=== PATIENT | female | born 1960 | race Asian ===

== ENCOUNTER 2017-02-22 10:57 | Emergency (ER) | payer MEDICAID ==
[~2017-02-22] VITALS: Ht 160 cm; Wt 65.9 kg
[~2017-02-22 10:57] MED LIST: CHOLESTEROL PO; GLIP5 PO; LOSA25TA21 PO
[2017-02-22 11:06] LABS: GLUCOSE,POINT OF CARE 140 MG/DL (70-110)
[2017-02-22 11:15] VITALS: BP 158/92
[2017-02-22] MEDS ORDERED: IBUPROFEN 600 MG TABLET PO ONE (12:00)
== END 2017-02-22 12:50 | disposition home or self-care (01) ==
LOC: EMS 10:58
DX: S20.212A Contusion of left front wall of thorax, initial encounter (principal); M75.32 Calcific tendinitis of left shoulder; E11.9 Type 2 diabetes mellitus without complications; E78.00 Pure hypercholesterolemia, unspecified; I10 Essential (primary) hypertension; W18.40XA Slipping, tripping and stumbling without falling, unspecified, initial encounter; Y93.89 Activity, other specified; Y92.096 Garden or yard of other non-institutional residence as the place of occurrence of the external cause; Y99.8 Other external cause status
CPT/HCPCS: 29105; 82962; 99284